=== PATIENT | female | born 1975 | race Caucasian/White ===

== ENCOUNTER 2024-09-02 00:26 | Emergency (ER) | payer SELFPAY ==
[2024-09-02 00:53] LABS: BASOPHILS ABSOLUTE AUTO 0.02 K/uL (0.00-0.20); BASOPHILS PERCENT AUTO 0.2 % (0.0-2.0); EOSINOPHILS PERCENT AUTO 6.1 % (0.0-5.0); HEMATOCRIT 41.4 % (34.0-46.0); HEMOGLOBIN 13.9 g/dL (11.7-15.5); IMMATURE GRAN ABSOLUTE AUTO 0.01 10^3/uL (0.00-0.50); IMMATURE GRAN PERCENT AUTO 0.1 % (0.0-5.0); LYMPHOCYTES ABSOLUTE AUTO 3.22 K/uL (0.50-3.50); LYMPHOCYTES PERCENT AUTO 39.3 % (10.0-50.0); MEAN CORPUSCULAR HEMOGLOBIN 31.3 pg (28.2-33.3); MEAN CORPUSCULAR HGB CONC 33.6 g/dL (31.7-36.0); MEAN CORPUSCULAR VOLUME 93.2 fL (84.0-98.0); MONOCYTES ABSOLUTE AUTO 0.63 K/uL (0.00-1.00); MONOCYTES PERCENT AUTO 7.7 % (2.0-14.0); NEUTROPHILS ABSOLUTE AUTO 3.81 K/uL (1.40-7.00); NEUTROPHILS PERCENT AUTO 46.6 % (45.0-80.0); PLATELET COUNT,PLT 221 K/uL (150-350); RED BLOOD CELL COUNT 4.44 M/uL (3.77-5.09); RED CELL DISTRIBUTION WIDTH 12.9 % (11.2-14.1); WHITE BLOOD CELL COUNT,WBC 8.2 K/uL (4.0-10.2)
[2024-09-02] MEDS: Albuterol/Ipratropium 3.0-0.5 MG/3 ML Neb Soln NEB ONE (01:04)
[2024-09-02] MEDS: methylPREDNISolone Sodium Succinate 125 MG/2 ML SDV IVPUSH ONE (01:23)
[2024-09-02] MEDS: Sodium Chloride 0.9% 10 ML Syringe FLUSH PRN (01:24)
[2024-09-02 01:29] LABS: ALANINE AMINOTRANSFERASE,ALT 33 U/L (12-78); ALBUMIN 3.2 g/dL (3.4-5.0); ALKALINE PHOSPHATASE 94 IU/L (46-116); ASPARTATE AMNIOTRANSFERASE,AST 25 U/L (15-37); BILIRUBIN TOTAL 0.3 mg/dL (0.2-1.0); BLOOD UREA NITROGEN,BUN 9 mg/dL (7-18); CHLORIDE,CL 104 mmol/L (98-107); CREATININE 0.88 mg/dL (0.51-1.17); ESTIMATED GFR 80 mL/min (>=60); GLUCOSE RANDOM 103 mg/dL (70-99); MAGNESIUM 1.8 mg/dL (1.8-2.4); POTASSIUM,K 3.5 mmol/L (3.5-5.1); PROTEIN TOTAL,TP 6.9 g/dL (6.4-8.2); SODIUM,NA 138 mmol/L (136-145)
[2024-09-02] MEDS: Codeine/guaiFENesin 10-100 MG/5 ML Syrup 5 ML Cup PO ONE (01:53)
== END 2024-09-02 02:05 | disposition home or self-care (01) ==
LOC: LL.ED 00:26
DX: J44.1 Chronic obstructive pulmonary disease with (acute) exacerbation (principal); B34.9 Viral infection, unspecified; Z88.0 Allergy status to penicillin; Z88.5 Allergy status to narcotic agent
CPT/HCPCS: 36415; 71046; 80053; 83605; 83735; 85025; 85379; 87428; 94640; 96374; 99284; A9270; J2919; J7620-GY